=== PATIENT | male | born 1970 | race Caucasian/White ===

== ENCOUNTER 2016-09-03 19:37 | Inpatient (IN) | payer OTHER ==
[~2016-09-03] VITALS: Ht 182.9 cm; Wt 125.0 kg
[~2016-09-03 19:37] MED LIST: AMLO-147 PO; FENO145T19 PO; FOLI-49 PO; GLIP5TAB82 PO
[2016-09-03] MEDS ORDERED: SODIUM CHLORIDE 0.9% 1L BAG IV* STA (20:20)
[2016-09-03] MEDS ORDERED: ACETAMINOPHEN 500 MG TAB PO STA (20:30)
[2016-09-03 20:51] LABS: ADD SCAN DIFF NO
[2016-09-03 20:53] LABS: HEMOGLOBIN 13.5 g/dl (14.0-18.0); MEAN CORPUSCULAR HEMOGLOBIN 30.8 pg (29.0-33.0); MEAN CORPUSCULAR HGB CONC 33.8 g/dl (32.0-37.0); MEAN CORPUSCULAR VOLUME 91.3 fl (82.0-101.0); MEAN PLATELET VOLUME 8.5 fl (7.4-10.4); PLATELET COUNT 553 10^3/UL (140-415); RED BLOOD COUNT 4.38 10^6/ul (4.70-6.10); RED CELL DISTRIBUTION WIDTH 12.5 % (11.5-14.5); WHITE BLOOD COUNT 4.9 10^3/ul (4.8-10.8)
[2016-09-03 21:01] LABS: ADD UMIC YES; URINE BILIRUBIN (Dip) NEGATIVE (NEGATIVE); URINE BLOOD (Dip) 3+ (NEGATIVE); URINE COLOR YELLOW (YELLOW); URINE GLUCOSE (Dip) NEGATIVE (NEGATIVE); URINE KETONES (Dip) NEGATIVE (NEGATIVE); URINE NITRITE (Dip) NEGATIVE (NEGATIVE); URINE TOTAL PROTEIN (Dip) 3+ (NEGATIVE)
[2016-09-03 21:02] LABS: URINE LEUKOCYTE ESTERASE (Dip) 3 (NEGATIVE); URINE UROBILINOGEN (Dip) 0.2 E.U./dL (0.1-1.0)
[2016-09-03 21:04] LABS: BACTERIA,URINE FEW
[2016-09-03 21:05] LABS: INR 1.26; PARTIAL THROMBOPLASTIN TIME 29.3 Sec (25.0-35.0); PROTIME 15.9 Sec (12.2-14.2); PT RATIO 1.2
[2016-09-03 21:06] LABS: ALBUMIN 3.2 g/dl (3.3-4.9)
[2016-09-03 21:07] LABS: CHLORIDE 92 mmol/L (97-110); SODIUM 130 mmol/L (135-144)
[2016-09-03 21:09] LABS: ALBUMIN/GLOBULIN RATIO 0.88; ALKALINE PHOSPHATASE 89 IU/L (42-121); ANION GAP 20 (8-16); ASPARTATE AMINO TRANSFERASE 68 IU/L (15-46); BILIRUBIN,INDIRECT 0.5 mg/dl (0-1.1); BILIRUBIN,TOTAL 0.5 mg/dl (0.2-1.3); CARBON DIOXIDE 22 mmol/L (21-31); TOTAL PROTEIN 6.8 g/dl (6.1-8.1)
[2016-09-03 21:10] LABS: ALANINE AMINOTRANSFERASE 68 IU/L (13-69); BLOOD UREA NITROGEN 10 mg/dl (7-20); CALCIUM 8.7 mg/dl (8.4-10.2); GLUCOSE 93 mg/dl (70-220)
--- NOTE | 2016-09-03 21:24 | RADRPT ---
PROCEDURE: XR Chest. CLINICAL INDICATION: Possible sepsis. TECHNIQUE: Single frontal view of the chest with apical lordotic positioning. COMPARISON: None. FINDINGS: Heart size is at upper limits of normal. The lungs are clear. No signs of pleural fluid or pneumotho rax are seen. The osseous structures and soft tissues are unremarkable. IMPRESSION: No evidence for active cardiopulmonary disease. RPTAT: [facility] Physician Melodie Date Time Electronically viewed and signed by Rachele Ramirez Physician on 09/03/2016 21:24 RS/
[2016-09-03 21:29] LABS: TROPONIN-I < 0.012 ng/ml (0.00-0.12)
[2016-09-03 21:30] LABS: LYMPHOCYTES # 1.4 10^3/ul (0.8-2.9); NEUTROPHIL # 0.9 10^3/ul (1.6-7.5); PLATELET ESTIMATE PLT APPEAR INCREASED
[2016-09-03] MEDS ORDERED: ATOR10TA65 PO (21:50)
[2016-09-03] MEDS ORDERED: ENAL10TA PO (21:50)
[2016-09-03] MEDS ORDERED: FENO160T13 PO (21:50)
[2016-09-03 21:57] VITALS: TEMP 99.7
[2016-09-03] MEDS ORDERED: ONDANSETRON 4 MG INJ IV PRN ×2 (22:00→23:00)
[2016-09-03] MEDS ORDERED: ACETAMINOPHEN 325 MG TAB PO PRN (22:00)
[2016-09-03] MEDS ORDERED: CEFTRIAXONE 1 GM/50 ML (PMX) 50 ML IVPB ONE (22:00)
--- NOTE | 2016-09-03 22:14 | RADRPT ---
PROCEDURE: CT Abdomen and pelvis without contrast. CLINICAL INDICATION: Abdominal pain. TECHNIQUE: CT scan of the abdomen and pelvis was performed on a multi-detector high-resolution CT scanner. Contiguous axial images were obtained from the lung bases to the ischial tuberosities wit hout intravenous contrast. Coronal and sagittal reformatted images were also obtained. Images were reviewed on the PACS workstation. One or more of the following dose reduction techniques were used: - Automated exposure control. - Adjustment of the mA and/or kV according to patient size. - Use of iterative reconstruction technique. Exam CTD/vol = 23.00 mGy. Total exam DLP = 1614.25 mGy-cm. COMPARISON: 11/13/2013. FINDINGS: Evaluation of the lung bases demonstrates no pleural or parenchymal disease. Abdomen: The liver is normal in size and diffusely low in attenuation consistent with fatty infiltr ation. There is no focal mass or dilatation of the biliary tree. The gallbladder is not distended. The spleen, pancreas and bilateral adrenal glands are within normal limits. There is a duplicated left renal collecting system with moderate dilatation of the upper pole moiety and marked dilatatio n of the lower pole moiety with mild adjacent stranding. There is severe left-sided hydroureter. T he right kidney is normal in size with no contour deforming mass identified. There is no radiopaque renal or ureteral calculus identified. There is no retroperitoneal adenopathy. The abdominal aort a is of normal caliber. There is no abnormal bowel wall thickening or distension. There is no bowel obstruction or free air . The appendix is not visualized. There is no diverticulosis or diverticulitis. There is no ascite s. Pelvis: The bladder is unremarkable. The prostate and seminal vesicles are within normal limits. There is no significant pelvic adenopathy or free fluid. Evaluation of the osseous structures demonstrates no suspicious lytic or blastic lesion. IMPRESSION: Duplicated left renal collecting system with moderate dilatation of the upper pole moiety and marked dilatation of the lower pole moiety, increased compared with 11/13/2013. There is moderate left-si ded hydroureter, also increased. Fatty infiltration of the liver. .Anthony Monk MD, Date Time Electronically viewed and signed by .Anthony Monk MD, MD on 09/03/2016 22:14 .T/
[2016-09-03 22:30] VITALS: Ht 182.9 cm; Wt 125.0 kg
[2016-09-03] MEDS ORDERED: morphine 4 MG/ML VIAL IV PRN (23:00)
--- NOTE | 2016-09-03 23:00 | ERA ---
ER Documentation Chief Complaint Date/Time DATE: 09/03/16 TIME: 22:58 Chief Complaint sent by pmd for fever/lower abd pain, high wbc HPI Patient is a 45-year-old male who presents with abdominal pain. The patient has had abdominal pain and flank pain for the past 2 weeks. He was told that he had a UTI was placed on Bactrim and he got better but then he got worse and the symptoms came back even stronger. The patient has had urine frequency and dysuria. He called the clinic and his primary doctor who was concerned for worsening infection and therefore came to the emergency department. ROS All systems reviewed and are negative except as per history of present illness. Medications Home Meds Reported Medications Enalapril Maleate* (Enalapril Maleate*) 10 Mg Tablet, 10 MG PO DAILY, TAB 09/03/16 Atorvastatin Calcium (Atorvastatin Calcium) 10 Mg Tablet, 10 MG PO QHS, #30 TAB 09/03/16 Fenofibrate, Micronized* (Fenofibrate*) 160 Mg Tablet, 160 MG PO DAILY, TAB 09/03/16 Folic Acid* (Folic Acid*) 1 Mg Tablet, 1 MG PO DAILY, TAB 11/13/13 Glipizide* (Glucotrol*) 5 Mg Tablet, 5 MG PO DAILY, TAB 11/13/13 Discontinued Reported Medications Fenofibrate Nanocrystallized* (Fenofibrate*) 145 Mg Tablet, 160 MG PO DAILY, TAB 11/13/13 Amlodipine Besylate* (Amlodipine Besylate*) 10 Mg Tablet, 10 MG PO DAILY, TAB 11/13/13 Allergies Allergies: Coded Allergies: No Known Drug Allergies (Verified Allergy, Unknown, 09/03/16) PMhx/Soc History of Surgery: Yes (TESTICULAR TORSION; ADENOID REMOVAL) Anesthesia Reaction: No Hx Neurological Disorder: No Hx Respiratory Disorders: No Hx Cardiac Disorders: No Hx Psychiatric Problems: No Hx Miscellaneous Medical Probl: Yes (HTN, DM, L HYDRONEPHROSIS) Hx Alcohol Use: Yes (SOCIALLY) Hx Substance Use: No (THC socially) Hx Tobacco Use: Yes (Quit 4 years ago) Smoking Status: Former smoker FmHx Family History: No diabetes Physical Exam Vitals Vital Signs Date Time Temp Pulse Resp B/P Pulse Ox O2 Delivery O2 Flow Rate FiO2 09/03/16 21:57 99.7 99 16 122/73 100 Room Air 09/03/16 20:57 113 20 148/77 97 Room Air 09/03/16 19:48 103.0 130 20 130/84 97 Physical Exam Const: Mild distress Head: Atraumatic Eyes: Normal Conjunctiva ENT: Normal External Ears, Nose and Mouth. Neck: Full range of motion..~ No meningismus. Resp: Clear to auscultation bilaterally Cardio: Tachycardia without murmur Abd: Soft, diffuse tenderness to palpation without rebound or guarding Skin: No petechiae or rashes Back: No midline or flank tenderness Ext: No cyanosis, or edema Neur: Awake and alert Psych: Normal Mood and Affect Result Diagram: 09/03/16203909/03/162039 Results 24 hrs Laboratory Tests Test 09/03/16 20:40 White Blood Count 4.910^3/ul Red Blood Count 4.3810^6/ul Hemoglobin 13.5g/dl Hematocrit 40.0% Mean Corpuscular Volume 91.3fl Mean Corpuscular Hemoglobin 30.8pg Mean Corpuscular Hemoglobin Concent 33.8g/dl Red Cell Distribution Width 12.5% Platelet Count 06348^3/UL Mean Platelet Volume 8.5fl Neutrophils % 18.0% Band Neutrophils % 22.0% Lymphocytes % 28.0% Reactive Lymphocytes % 9.0% Monocytes % 21.0% Eosinophils % % Metamyelocytes % 2.0% Neutrophils # 0.910^3/ul Lymphocytes # 1.410^3/ul Monocytes # 1.010^3/ul Eosinophils # 10^3/ul Metamyelocytes # 0.1 Platelet Estimate PLT APPEAR INCREASED Prothrombin Time 15.9Sec Prothrombin Time Ratio 1.2 INR International Normalized Ratio 1.26 Activated Partial Thromboplast Time 29.3Sec Urine Color YELLOW Urine Clarity TURBID Urine pH 7 Urine Specific [place] 1.020 Urine Ketones NEGATIVE Urine Nitrite NEGATIVE Urine Bilirubin NEGATIVE Urine Urobilinogen 0.2 E.U./dL Urine Leukocyte Esterase 3 Urine Microscopic RBC 5-10/HPF Urine Microscopic WBC >200/HPF Urine Bacteria FEW Urine Hemoglobin 3+ Urine Glucose NEGATIVE% Urine Total Protein 3+ Sodium Level 130mmol/L Potassium Level 4.0mmol/L Chloride Level 92mmol/L Carbon Dioxide Level 22mmol/L Anion Gap 20 Blood Urea Nitrogen 10mg/dl Creatinine 0.90mg/dl Glucose Level 93mg/dl Lactic Acid Level 1.3mmol/L Calcium Level 8.7mg/dl Total Bilirubin 0.5mg/dl Direct Bilirubin 0.00mg/dl Indirect Bilirubin 0.5mg/dl Aspartate Amino Transf (AST/SGOT) 68IU/L Alanine Aminotransferase (ALT/SGPT) 68IU/L Alkaline Phosphatase 89IU/L Troponin I < 0.012ng/ml Total Protein 6.8g/dl Albumin 3.2g/dl Globulin 3.60g/dl Albumin/Globulin Ratio 0.88 Current Medications Medications (Trade) Dose Ordered Sig/Kassandra Route PRN Reason Start Time Stop Time Status Last Admin Dose Admin Sodium Chloride (NS) 3,880 ml BOLUS OVER 2 HOURS STAT IV* 09/03/16 20:20 09/03/16 20:21 DC 09/03/16 20:37 Acetaminophen (Tylenol Tab) 1,000 mg ONCE STAT PO 09/03/16 20:30 09/03/16 20:31 DC 09/03/16 20:36 Procedures/MDM Admit MDM: Patient's infectious symptoms have not stabilized and the patient is at risk of rapid decompensation. The patient will be admitted for careful hydration, antibiotic therapy, and infectious source control. Severe Sepsis criteria: Infectious source: Pyelonephritis End organ damage indicated by: No end organ damage at this time Sepsis Management: Time of recognition of sepsis: 20:40 Within 3 hours of recognition: Blood cultures x 2 before broad-spectrum antibiotics: Yes 30 ml/kg NS bolus Completed Initial lactate 1.3 Repeat lactate pending Time of recognition of septic shock: No septic shock Septic Shock Assessment: Any lactic acid > 4.0 No Persistent hypotension (SBP < 90 or 40 mmHg drop, MAP < 65) despite 30 mL/kg IV fluid bolus No Volume Re-assessment for Septic Shock (post 30 ml/kg bolus): No septic shock at this time Persistent Hypotension Treatment: Comfort care No Central line Not Required Vasopressor started Not required I considered further perfusion assessment with CVP measurement, SCVO2, bedside ultrasound volume assessment, passive leg raise, trial of further fluid bolus. And proceeded with 30 ml/kg fluid bolus of NSS, broad spectrum antibiotics, and admission. Accepting Care Team Current data and ongoing care discussed. Admitting Physician: Dr. Akers from the panel team [place]odeo Performer(s): None Outstanding Data: Culture results and repeat lactic acid Critical Care: Critical care time 35 minutes excluding all billable procedures Emergent fluid management while maintaining close respiratory support. Provision of immediate and broad-spectrum antibiotic therapy. Simultaneous assessment for possible sources in order to direct targeted therapy. Consideration for invasive and chemical support to prevent cardiopulmonary collapse. Departure Diagnosis: Primary Impression: Sepsis Qualified Code: A41.9 - Sepsis, due to unspecified organism Additional Impressions: Fever Qualified Code: R50.9 - Fever, unspecified fever cause Pyelonephritis Bandemia Anemia Qualified Code: D64.9 - Anemia, unspecified type Condition: SERA Meza MD Sep 03, 2016 23:00
[2016-09-03] MEDS ORDERED: DEXTROSE 50% 50 ML SYRINGE IV PRN ×2 (23:15)
[2016-09-03] MEDS ORDERED: GLUCOSE GEL 15 GRAM TUBE PO PRN ×2 (23:15)
[2016-09-03] MEDS ORDERED: GLUCOSE GEL 15 GRAM TUBE BUCCAL PRN (23:15)
[2016-09-03] MEDS ORDERED: GLUCAGON 1 MG INJ IM PRN (23:15)
[2016-09-03] MEDS: SOD CHLORIDE 0.9% 1,000 ML IV SCH (23:30)
[2016-09-04] MEDS: CEFEPIME 1GM/50 ML (PMX) 50 ML IVPB SCH ×3 (00:23→21:46)
[2016-09-04] MEDS: ACCU-CHEK XX SCH (00:56)
[2016-09-04] MEDS ORDERED: ACCU-CHEK XX SCH (02:00)
[2016-09-04 06:34] LABS: ADD SCAN DIFF NO
[2016-09-04 06:48] LABS: ABNORMAL IP MESSAGE 1; HEMATOCRIT 32.2 % (42.0-52.0); HEMOGLOBIN 10.9 g/dl (14.0-18.0); MEAN CORPUSCULAR HEMOGLOBIN 31.8 pg (29.0-33.0); MEAN CORPUSCULAR HGB CONC 33.9 g/dl (32.0-37.0); MEAN CORPUSCULAR VOLUME 93.9 fl (82.0-101.0); MEAN PLATELET VOLUME 8.8 fl (7.4-10.4); PLATELET COUNT 399 10^3/UL (140-415); RED BLOOD COUNT 3.43 10^6/ul (4.70-6.10); WHITE BLOOD COUNT 3.6 10^3/ul (4.8-10.8)
[2016-09-04] MEDS: SOD CHLORIDE 0.9% 1,000 ML IV SCH ×2 (07:00→16:13)
[2016-09-04 07:05] LABS: ALANINE AMINOTRANSFERASE 54 IU/L (13-69); ALBUMIN 2.4 g/dl (3.3-4.9); ALBUMIN/GLOBULIN RATIO 0.88; ALKALINE PHOSPHATASE 66 IU/L (42-121); ANION GAP 11 (8-16); ASPARTATE AMINO TRANSFERASE 56 IU/L (15-46); BILIRUBIN,INDIRECT 0.1 mg/dl (0-1.1); BILIRUBIN,TOTAL 0.1 mg/dl (0.2-1.3); BLOOD UREA NITROGEN 7 mg/dl (7-20); CALCIUM 7.6 mg/dl (8.4-10.2); CARBON DIOXIDE 19 mmol/L (21-31); CHLORIDE 105 mmol/L (97-110); CREATININE 0.57 mg/dl (0.61-1.24); GLUCOSE 92 mg/dl (70-220); HDL CHOLESTEROL 11 mg/dl (27-67); SODIUM 131 mmol/L (135-144); TOTAL PROTEIN 5.1 g/dl (6.1-8.1); TRIGLYCERIDES 66 mg/dl (0-149)
[2016-09-04 07:06] LABS: CHOLESTEROL < 50 mg/dl (100-200)
--- NOTE | 2016-09-04 07:45 | HP ---
DATE OF ADMISSION: 09/03/2016 CHIEF COMPLAINT: The patient is sent by PCP for abdominal pain, fever, and leukocytosis. HISTORY OF PRESENT ILLNESS: The patient is a 45-year-old male with a history of hypertension, dysli pidemia, diabetes, and testicular torsion status post surgery who was sent by his primary care docto r for above stated reasons. The patient has been having lower abdominal as well as flank pain for o ignacio 2 weeks now. He has been placed on Bactrim for UTI. However, his pain progressively has gotten worse. He also reported pain on urination as well as frequency. He denied any chest pain, shortne ss of breath, nausea, vomiting, or diarrhea. When the patient presented to the ER, his temperature was 103, and he was tachycardic with a heart r ate of 130. Urinalysis was consistent with severe UTI. Laboratory value shows sodium of 130, chlor yajaira 92, AST 68, albumin 3.2, hemoglobin 13.5, and platelet count 553. Otherwise, the rest of CBC an d CMP were within acceptable range. Chest x-ray shows no active disease, and a CT abdomen and pelvi s without contrast shows duplicated left renal collecting system with moderate dilatation of the upp er pole moiety and marked dilatation of the lower pole moiety, increased compared to the CT scan fro 2013. There is moderate left-sided hydroureter, also increased from previously. Also noted was f atty infiltration of the liver. The patient was given IV fluid and was started on Rocephin. REVIEW OF SYSTEMS: A 12-point review was performed, negative except as mentioned in HPI. PAST MEDICAL HISTORY: As per HPI. PAST SURGICAL HISTORY: Surgery for testicular torsion. SOCIAL HISTORY: He is an ex-smoker, drinks alcohol occasionally. Denied a history of illicit drug use. ALLERGIES: NO KNOWN DRUG ALLERGIES. HOME MEDICATIONS: 1. Lipitor. 2. Enalapril. 3. Fenofibrate. 4. Glipizide. 5. Folic acid. PHYSICAL EXAMINATION: VITAL SIGNS: Blood pressure 122/73, heart rate 99, respiratory rate 16, temperature 99.7, oxygen sa turation 100% on room air. GENERAL: No acute distress, lying in bed, comfortable, answering questions appropriately. HEENT: No obvious head deformity. Pupils are reactive to light. Extraocular muscles intact. CARDIOVASCULAR: Tachycardic with regular rhythm. LUNGS: Clear. ABDOMEN: Obese, soft. There is tenderness in the lower abdominal region as well as in bilateral fl ank area. EXTREMITIES: No edema. NEUROLOGIC: No focal deficits. LABORATORY: Pertinent positives as above with results as mentioned in the HPI. IMAGING: Chest x-ray and CT abdomen and pelvis without contrast with results as mentioned in the HP I. IMPRESSION: 1. Sepsis, secondary to pyelonephritis. 2. Hypertension, currently blood pressure within goal. 3. History of diabetes, blood glucose here well controlled. 4. History of dyslipidemia 5. Hyponatremia. 6. Thrombocytosis, likely reactive secondary to sepsis. PLAN: He will be placed on IV antibiotic. We will follow up on the urine culture as well as blood culture results. We will provide pain medication and antiemetics as needed. He will be placed on i nsulin for his diabetes while in house. We will continue his home medication including antihyperten sive as well as for dyslipidemia. He will also receive IV fluid. Further workup and management per clinical course. Dictated By: VARUN TIMMONS/MUNIRA Conf#: [id number] DID#: [id number]
[2016-09-04] MEDS: INSULIN ASPART [NOVOLOG] 3 ML PEN SC SCH ×4 (08:00→21:00)
[2016-09-04 08:41] VITALS: BP 132/70; RESP 20
[2016-09-04] MEDS: FENOFIBRATE 145 MG TAB PO SCH (08:41)
[2016-09-04] MEDS: FOLIC ACID 1 MG TAB PO SCH (08:41)
[2016-09-04 09:37] LABS: LYMPHOCYTES # 1.5 10^3/ul (0.8-2.9); MONOCYTE # 0.9 10^3/ul (0.3-0.9); NEUTROPHIL # 0.3 10^3/ul (1.6-7.5)
[2016-09-04] MEDS: ENALAPRIL 10 MG TAB PO SCH (12:00)
[2016-09-04 12:02] VITALS: BP 138/79; PULSE 107
--- NOTE | 2016-09-04 15:03 | PN ---
Date/Time of Note Date/Time of Note DATE: 09/04/16 TIME: 14:52 Assessment/Plan VTE Prophylaxis VTE Prophylaxis Intervention: SCD's Lines/Catheters [facility] Per[facility] IV Urinary Cath still in place: No Assessment/Plan Chief Complaint/Hosp Course Assessment and plan 1. Urinary tract infection/ pyelonephritis. Patient has been placed on cefepime Urine culture positive for ALPHA HEMOLYTIC STREP SPP COLONY COUNT >100,000 CFU/ml, [employer] Follow up sensitivity and treat accordingly 2. Hypertension, currently blood pressure within goal. 3. History of diabetes, blood glucose here well controlled. 4. History of dyslipidemia 5. Hyponatremia. Improving 6. Thrombocytosis, likely reactive secondary to sepsis. We will continue monitor patient closely for recommendation management treatment as clinical course Discharge home when sensitivity is available Problems: Subjective 24 Hr Interval Summary Free Text/Dictation Patient denies of any chest pain or shortness of breath Significant improvement in genitourinary discomfort No nausea vomiting diarrhea Tolerating oral intake Exam/Review of Systems Vital Signs Vitals Vital Signs Date Time Temp Pulse Resp B/P Pulse Ox O2 Delivery O2 Flow Rate FiO2 09/04/16 12:02 107 138/79 09/04/16 08:41 99.0 20 96 09/03/16 21:57 Room Air Intake and Output 09/03/16 09/03/16 09/04/16 15:00 23:00 07:00 Intake Total 1187.5 ml Output Total 400 ml Balance 787.5 ml Exam General: The patient is morbidly obese, Not in acute distress. HEENT: Atraumatic, normocephalic. The pupils are equal and round . Neck: Supple with full range of motion. Chest: Normal expansion of the thorax during inspiration Lungs: Clear to auscultation bilaterally Heart: Normal S1-S2, Regular rhythm and rate. Abdomen: Soft , nontender, nondistended , bowel sounds are present. Extremities: Normal to inspection, no edema no cyanosis Neurologic: Normal mental status,The patient is awake, alert and oriented . Genitourinary: Minimal drainage Results Result Diagram: 09/04/16 0536 09/04/16 0536 Results 24 hrs Laboratory Tests Test 09/03/16 20:40 09/03/16 22:42 09/03/16 22:50 09/04/16 00:43 White Blood Count 4.9 Red Blood Count 4.38 L Hemoglobin 13.5 L Hematocrit 40.0 L Mean Corpuscular Volume 91.3 Mean Corpuscular Hemoglobin 30.8 Mean Corpuscular Hemoglobin Concent 33.8 Red Cell Distribution Width 12.5 Platelet Count 553 H Mean Platelet Volume 8.5 Neutrophils % 18.0 L Band Neutrophils % 22.0 H Lymphocytes % 28.0 Reactive Lymphocytes % 9.0 Monocytes % 21.0 H Eosinophils % Metamyelocytes % 2.0 H Neutrophils # 0.9 L Lymphocytes # 1.4 Monocytes # 1.0 H Eosinophils # Metamyelocytes # 0.1 Platelet Estimate PLT APPEAR INCREASED Prothrombin Time 15.9 H Prothrombin Time Ratio 1.2 INR International Normalized Ratio 1.26 Activated Partial Thromboplast Time 29.3 Urine Color YELLOW Urine Clarity TURBID H Urine pH 7 Urine Specific [place] 1.020 Urine Ketones NEGATIVE Urine Nitrite NEGATIVE Urine Bilirubin NEGATIVE Urine Urobilinogen 0.2 E.U./dL Urine Leukocyte Esterase 3 Urine Microscopic RBC 5-10 Urine Microscopic WBC >200 Urine Bacteria FEW Urine Hemoglobin 3+ H Urine Glucose NEGATIVE Urine Total Protein 3+ H Sodium Level 130 L Potassium Level 4.0 Chloride Level 92 L Carbon Dioxide Level 22 Anion Gap 20 H Blood Urea Nitrogen 10 Creatinine 0.90 Glucose Level 93 Lactic Acid Level 1.3 0.7 0.7 Calcium Level 8.7 Total Bilirubin 0.5 Direct Bilirubin 0.00 Indirect Bilirubin 0.5 Aspartate Amino Transf (AST/SGOT) 68 H Alanine Aminotransferase (ALT/SGPT) 68 Alkaline Phosphatase 89 Troponin I < 0.012 Total Protein 6.8 Albumin 3.2 L Globulin 3.60 H Albumin/Globulin Ratio 0.88 Bedside Glucose 84 Test 09/04/16 05:32 09/04/16 05:36 09/04/16 07:54 09/04/16 11:52 Hemoglobin A1c 5.6 White Blood Count 3.6 #L Red Blood Count 3.43 #L Hemoglobin 10.9 L Hematocrit 32.2 L Mean Corpuscular Volume 93.9 Mean Corpuscular Hemoglobin 31.8 Mean Corpuscular Hemoglobin Concent 33.9 Red Cell Distribution Width 13.0 Platelet Count 399 # Mean Platelet Volume 8.8 Neutrophils % 9.0 L Band Neutrophils % 22.0 H Lymphocytes % 43.0 Monocytes % 24.0 H Eosinophils % 1.0 Basophils % 1.0 Neutrophils # 0.3 L Lymphocytes # 1.5 Monocytes # 0.9 Eosinophils # 0.0 Basophils # 0.0 Sodium Level 131 L Potassium Level 4.0 Chloride Level 105 # Carbon Dioxide Level 19 L Anion Gap 11 # Blood Urea Nitrogen 7 Creatinine 0.57 L Glucose Level 92 Calcium Level 7.6 L Total Bilirubin 0.1 L Direct Bilirubin 0.00 Indirect Bilirubin 0.1 Aspartate Amino Transf (AST/SGOT) 56 H Alanine Aminotransferase (ALT/SGPT) 54 Alkaline Phosphatase 66 Total Protein 5.1 #L Albumin 2.4 L Globulin 2.70 Albumin/Globulin Ratio 0.88 Triglycerides Level 66 Cholesterol Level < 50 L LDL Cholesterol, Calculated HDL Cholesterol 11 L Cholesterol/HDL Ratio Bedside Glucose 93 150 Medications Medications Current Medications Cefepime HCl (Maxipime 1gm/50 ml (Pmx)) 50 ml @ 100 mls/hr Q12 IVPB Last administered on 09/04/16 08:41; Admin Dose 100 MLS/HR; Start 09/03/16 at 23:00 Insulin Glargine (Lantus) 10 unit DAILY@20 SC ; Start 09/04/16 at 20:00 Diagnostic Test (Pha) (Accu-Chek) 1 ea 02 XX ; Start 09/04/16 at 02:00 Morphine Sulfate (morphine) 3 mg Q4H PRN IV PAIN; Start 09/03/16 at 23:00 Acetaminophen (Tylenol Tab) 650 mg Q6H PRN PO PAIN AND OR ELEVATED TEMP; Start 09/03/16 at 23:00 Ondansetron HCl 4 mg 4 mg Q6H PRN IV NAUSEA AND/OR VOMITING; Start 09/03/16 at 23:00 Sodium Chloride (NS) 1,000 ml @ 125 mls/hr Q8H IV Last administered on 23:30; Admin Dose 125 MLS/HR; Start 09/03/16 at 23:00 Atorvastatin Calcium (Lipitor) 10 mg QHS PO ; Start 09/04/16 at 21:00 Enalapril Maleate (Vasotec) 10 mg DAILY PO Last administered on 09/04/16 12:00 ; Admin Dose 10 MG; Start 09/04/16 at 09:00 Folic Acid (Folic Acid) 1 mg DAILY PO Last administered on 09/04/16 08:41; Admin Dose 1 MG; Start 09/04/16 at 09:00 Fenofibrate (Tricor) 145 mg DAILY PO Last administered on 09/04/16t 08:41; Admin Dose 145 MG; Start 09/04/16 at 09:00 Miscellaneous Information 1 ea NOTE XX ; Start 09/03/16 at 23:15 Glucose (Glutose) 15 gm Q15M PRN PO DECREASED GLUCOSE; Start 09/03/16 at 23:15 Glucose (Glutose) 22.5 gm Q15M PRN PO DECREASED GLUCOSE; Start 09/03/16 at 23: 15 Dextrose (D50w Syringe) 25 ml Q15M PRN IV DECREASED GLUCOSE; Start 09/03/16 at 23:15 Dextrose (D50w Syringe) 50 ml Q15M PRN IV DECREASED GLUCOSE; Start 09/03/16 at 23:15 Glucagon (Glucagen) 1 mg Q15M PRN IM DECREASED GLUCOSE; Start 09/03/16 at 23:15 Glucose (Glutose) 15 gm Q15M PRN BUCCAL DECREASED GLUCOSE; Start 09/03/16 at 23 :15 ROVERTO OSWALD MD Sep 04, 2016 15:03
[2016-09-04] MEDS: ACETAMINOPHEN 325 MG TAB PO PRN (17:14)
[2016-09-04 20:17] VITALS: BP 138/83; RESP 18
[2016-09-04] MEDS: INSULIN GLARGINE [LANtus] 3 ML PEN SC SCH (21:47)
[2016-09-04] MEDS: ATORVASTATIN 10 MG TAB PO SCH (21:48)
[2016-09-05] MEDS: ACCU-CHEK XX SCH (02:00)
[2016-09-05 05:45] LABS: ADD SCAN DIFF NO
[2016-09-05 05:54] LABS: ABNORMAL IP MESSAGE 1; BASOPHIL # 0.1 10^3/ul (0.0-0.1); BASOPHILS % 1.2 % (0.0-2.0); EOSINOPHILS # 0.1 10^3/ul (0.0-0.5); EOSINOPHILS % 2.4 % (0.0-7.0); HEMATOCRIT 31.9 % (42.0-52.0); HEMOGLOBIN 10.8 g/dl (14.0-18.0); LYMPHOCYTES # 1.4 10^3/ul (0.8-2.9); LYMPHOCYTES % 34.6 % (15.0-51.0); MEAN CORPUSCULAR HEMOGLOBIN 31.5 pg (29.0-33.0); MEAN CORPUSCULAR HGB CONC 33.9 g/dl (32.0-37.0); MEAN PLATELET VOLUME 8.9 fl (7.4-10.4); MONOCYTES % 24.1 % (0.0-11.0); NEUTROPHIL # 1.5 10^3/ul (1.6-7.5); NEUTROPHILS % 37.2 % (39.0-77.0); PLATELET COUNT 452 10^3/UL (140-415); RED BLOOD COUNT 3.43 10^6/ul (4.70-6.10); RED CELL DISTRIBUTION WIDTH 13.1 % (11.5-14.5); WHITE BLOOD COUNT 4.1 10^3/ul (4.8-10.8)
[2016-09-05 06:16] LABS: CALCIUM 7.7 mg/dl (8.4-10.2); CREATININE 0.62 mg/dl (0.61-1.24); MAGNESIUM 2.1 mg/dl (1.7-2.5); POTASSIUM 3.8 mmol/L (3.5-5.1)
[2016-09-05] MEDS: INSULIN ASPART [NOVOLOG] 3 ML PEN SC SCH ×4 (08:00→20:38)
[2016-09-05 08:09] VITALS: BP 131/80; RESP 20
[2016-09-05] MEDS: CEFEPIME 1GM/50 ML (PMX) 50 ML IVPB SCH ×2 (09:02→20:37)
[2016-09-05] MEDS: FOLIC ACID 1 MG TAB PO SCH (09:03)
[2016-09-05] MEDS: FENOFIBRATE 145 MG TAB PO SCH (09:04)
[2016-09-05] MEDS: ENALAPRIL 10 MG TAB PO SCH (09:05)
[2016-09-05] MEDS: SOD CHLORIDE 0.9% 1,000 ML IV SCH (09:40)
--- NOTE | 2016-09-05 16:02 | PN ---
Date/Time of Note Date/Time of Note DATE: 09/05/16 TIME: 15:58 Assessment/Plan VTE Prophylaxis VTE Prophylaxis Intervention: LMWH Lines/Catheters IV [facility] Type (from [facility] Peripheral IV Urinary Cath still in place: No Assessment/Plan Chief Complaint/Hosp Course S: Less toxicity. Some discolored urine and may be dysuria remains. States he saw a urologist 8 years ago. O: Vital signs stable PE No pallor Regular Clear Bs + nt nd; no r/r/g. Morbidly obese. No cvat No edema A/P 1. Pyelonephritis. Stable follow-up on cultures 2. Chr obstructive uropathy. May need outpatient urology follow-up if infections recur recur 3. Abn EKG probably body habitus related. No chest pain 4. Htn/ dysl/ m obesity 5. Past tobacco 6. Leukopenia. Sepsis related? Problems: Exam/Review of Systems Vital Signs Vitals Vital Signs Date Time Temp Pulse Resp B/P Pulse Ox O2 Delivery O2 Flow Rate FiO2 09/05/16 11:30 98.2 09/05/16 08:09 103 20 131/80 95 09/03/16 21:57 Room Air Intake and Output 09/04/16 09/04/16 09/05/16 15:00 23:00 07:00 Intake Total 363 ml 1250 ml 1280 ml Output Total 1701 ml Balance 363 ml -451 ml 1280 ml Results Result Diagram: 09/05/16 0443 09/05/16 0448 Results 24 hrs Laboratory Tests Test 09/04/16 17:02 09/04/16 21:44 09/05/16 04:43 09/05/16 04:48 Bedside Glucose 141 118 White Blood Count 4.1 L Red Blood Count 3.43 L Hemoglobin 10.8 L Hematocrit 31.9 L Mean Corpuscular Volume 93.0 Mean Corpuscular Hemoglobin 31.5 Mean Corpuscular Hemoglobin Concent 33.9 Red Cell Distribution Width 13.1 Platelet Count 452 H Mean Platelet Volume 8.9 Neutrophils % 37.2 L Lymphocytes % 34.6 Monocytes % 24.1 H Eosinophils % 2.4 Basophils % 1.2 Nucleated Red Blood Cells % 0.0 Neutrophils # 1.5 L Lymphocytes # 1.4 Monocytes # 1.0 H Eosinophils # 0.1 Basophils # 0.1 Nucleated Red Blood Cells # 0.0 Sodium Level 130 L Potassium Level 3.8 Chloride Level 104 Carbon Dioxide Level 21 Anion Gap 9 Blood Urea Nitrogen 6 L Creatinine 0.62 Glucose Level 117 Calcium Level 7.7 L Magnesium Level 2.1 Test 09/05/16 07:58 09/05/16 11:49 Bedside Glucose 110 125 Medications Medications Current Medications Cefepime HCl (Maxipime 1gm/50 ml (Pmx)) 50 ml @ 100 mls/hr Q12 IVPB Last administered on 09/05/16 09:02; Admin Dose 100 MLS/HR; Start 09/03/16 at 23:00 Insulin Glargine (Lantus) 10 unit DAILY@20 SC Last administered on 09/04/16 21 :47; Admin Dose 10 UNIT; Start 09/04/16 at 20:00 Diagnostic Test (Pha) (Accu-Chek) 1 ea 02 XX ; Start 09/04/16 at 02:00 Morphine Sulfate (morphine) 3 mg Q4H PRN IV PAIN; Start 09/03/16 at 23:00 Acetaminophen (Tylenol Tab) 650 mg Q6H PRN PO PAIN AND OR ELEVATED TEMP Last administered on 09/04/16 17:14; Admin Dose 650 MG; Start 09/03/16 at 23:00 Ondansetron HCl (Zofran Inj) 4 mg Q6H PRN IV NAUSEA AND/OR VOMITING; Start at 23:00 Atorvastatin Calcium (Lipitor) 10 mg QHS PO Last administered on 09/04/16 21: 48; Admin Dose 10 MG; Start 09/04/16 at 21:00 Enalapril Maleate (Vasotec) 10 mg DAILY PO Last administered on 09/05/16 09:05 ; Admin Dose 10 MG; Start 09/04/16 at 09:00 Folic Acid (Folic Acid) 1 mg DAILY PO Last administered on 09/05/16 09:03; Admin Dose 1 MG; Start 09/04/16 at 09:00 Fenofibrate (Tricor) 145 mg DAILY PO Last administered on 09/05/16 09:04; Admin Dose 145 MG; Start 09/04/16 at 09:00 Miscellaneous Information 1 ea NOTE XX ; Start 09/03/16 at 23:15 Glucose (Glutose) 15 gm Q15M PRN PO DECREASED GLUCOSE; Start 09/03/16 at 23:15 Glucose (Glutose) 22.5 gm Q15M PRN PO DECREASED GLUCOSE; Start 09/03/16 at 23: 15 Dextrose (D50w Syringe) 25 ml Q15M PRN IV DECREASED GLUCOSE; Start 09/03/16 at 23:15 Dextrose (D50w Syringe) 50 ml Q15M PRN IV DECREASED GLUCOSE; Start 09/03/16 at 23:15 Glucagon (Glucagen) 1 mg Q15M PRN IM DECREASED GLUCOSE; Start 09/03/16 at 23:15 Glucose 15 gm 15 gm Q15M PRN BUCCAL DECREASED GLUCOSE; Start 09/03/16 at 23:15 Sodium Chloride (NS) 1,000 ml @ 60 mls/hr [id number] IV Last administered on 09/05t 09:40; Admin Dose 60 MLS/HR; Start 09/04/16 at 15:30 ELLIOT ORTEGA MD Sep 05, 2016 16:02
[2016-09-05] MEDS: ACETAMINOPHEN 325 MG TAB PO PRN (17:29)
[2016-09-05] MEDS: INSULIN GLARGINE [LANtus] 3 ML PEN SC SCH (20:37)
[2016-09-05] MEDS: ATORVASTATIN 10 MG TAB PO SCH (20:37)
[2016-09-05 20:49] VITALS: BP 138/79; RESP 17
[2016-09-05] MEDS: FAMOTIDINE 20 MG TAB PO SCH (21:36)
[2016-09-06] MEDS: ACCU-CHEK XX SCH (01:50)
[2016-09-06 05:00] LABS: HAAIG REFLEX REFLEX FILED
[2016-09-06 05:12] LABS: ADD SCAN DIFF NO
[2016-09-06 05:36] LABS: ALBUMIN 2.4 g/dl (3.3-4.9); ALBUMIN/GLOBULIN RATIO 0.85; BILIRUBIN,INDIRECT 0.2 mg/dl (0-1.1); BILIRUBIN,TOTAL 0.2 mg/dl (0.2-1.3); CALCIUM 7.9 mg/dl (8.4-10.2); CREATININE 0.59 mg/dl (0.61-1.24); POTASSIUM 3.8 mmol/L (3.5-5.1); TOTAL PROTEIN 5.2 g/dl (6.1-8.1)
[2016-09-06 05:51] LABS: ABNORMAL IP MESSAGE 1; HEMOGLOBIN 10.4 g/dl (14.0-18.0); MEAN CORPUSCULAR HEMOGLOBIN 30.5 pg (29.0-33.0); MEAN CORPUSCULAR HGB CONC 32.5 g/dl (32.0-37.0); MEAN CORPUSCULAR VOLUME 93.8 fl (82.0-101.0); PLATELET COUNT 432 10^3/UL (140-415); RED BLOOD COUNT 3.41 10^6/ul (4.70-6.10); RED CELL DISTRIBUTION WIDTH 13.3 % (11.5-14.5); WHITE BLOOD COUNT 4.4 10^3/ul (4.8-10.8)
[2016-09-06 05:59] LABS: IRON 13 ug/dl (35-150)
[2016-09-06 06:03] LABS: THYROID STIMULATING HORMONE 0.589 MIU/L (0.465-4.680)
[2016-09-06 06:09] LABS: TOTAL IRON BINDING CAPACITY 147 ug/dl (241-421)
[2016-09-06 07:15] LABS: HEPATITIS B CORE ANTIBODY NEGATIVE (NEGATIVE)
[2016-09-06 07:30] VITALS: BP 139/81; RESP 20
[2016-09-06] MEDS: INSULIN ASPART [NOVOLOG] 3 ML PEN SC SCH ×2 (07:58→11:49)
[2016-09-06] MEDS ORDERED: AMOXICILLIN/CLAV 875 MG TAB PO SCH (09:00)
[2016-09-06 09:12] LABS: EOSINOPHILS # 0.1 10^3/ul (0.0-0.5); LYMPHOCYTES # 1.8 10^3/ul (0.8-2.9); MONOCYTE # 0.7 10^3/ul (0.3-0.9); NEUTROPHIL # 1.2 10^3/ul (1.6-7.5)
[2016-09-06] MEDS: FOLIC ACID 1 MG TAB PO SCH (09:40)
[2016-09-06] MEDS: CEFEPIME 1GM/50 ML (PMX) 50 ML IVPB SCH (09:40)
[2016-09-06] MEDS: FENOFIBRATE 145 MG TAB PO SCH (09:40)
[2016-09-06] MEDS: ENALAPRIL 10 MG TAB PO SCH (09:41)
[2016-09-06] MEDS: FAMOTIDINE 20 MG TAB PO SCH (09:41)
--- NOTE | 2016-09-06 11:14 | RADRPT ---
PROCEDURE: XR Abdomen. CLINICAL INDICATION: Abdominal pain. Renal calculi. TECHNIQUE: AP supine abdomen x-ray. COMPARISON: CT scan of the abdomen and pelvis dated 09/03/2016 FINDINGS: The bowel gas pattern is normal. There is no evidence of obstruction. There are no abnormal calcifications overlying the urinary tracts. The osseus structures are unremarkable. IMPRESSION: 1. Unremarkable abdomen radiograph. RPTAT: QQ .Jerson Jha MD, MD Date Time Electronically viewed and signed by .Jerson Jha MD, MD on 09/06/2016 11:14 .R/
--- NOTE | 2016-09-06 12:56 | PDOCDIS ---
Discharge Instructions DIAGNOSIS Discharge Diagnosis: bladder infection CONDITION Patient Condition: Good HOME CARE INSTRUCTIONS: Special Diet: 1800 ADA ACTIVITY: Activity Restrictions: Slowly Increase Activity FOLLOW UP/APPOINTMENTS Appointments appt pcp 1wELLIOT Monahan MD Sep 06, 2016 12:56
[2016-09-06] MEDS ORDERED: AMOX1TAB10 PO (12:59)
[2016-09-06] MEDS ORDERED: ACET325T40 PO (12:59)
[2016-09-06] MEDS ORDERED: FERR47.56 PO (12:59)
--- NOTE | 2016-09-06 19:07 | DS ---
DATE OF ADMISSION: 09/03/2016 DATE OF DISCHARGE: 09/06/2016 PRIMARY CARE PHYSICIAN: Unknown. LITIGATION EXAMINER: None. DIAGNOSIS ON ADMISSION: Pyelonephritis. DIAGNOSES ON DISCHARGE: 1. Pyelonephritis. 2. Chronic obstructive uropathy. 3. Leukopenia. 4. Iron deficient anemia. 5. Hypertension. 6. Dyslipidemia. 7. Morbid obesity. 8. Past tobacco abuse. 9. Chronic diabetes. HOSPITAL COURSE: A 45-year-old gentleman admitted with dysuria, fever, abnormal urine culture cons istent with pyelonephritis. The patient has abnormal anatomy, chronic obstructive uropathy. Has se en urology in the remote past. He seems to be resolving with conservative measures and antibiotics. Culture showing alpha hemolytic streptococcal sensitive to penicillin. The patient is presently s table and fit for discharge. If he does not heal or improve, may need to see urology down the line. Metabolic syndrome needs risk factor modification. EKG showed poor R-wave progression through anter oseptal leads, probably due to body habitus. He has no chest pain, etc. IMAGING STUDIES: KUB did show stones. Chest x-ray: No acute process. Potential cardiomegaly. CA T scan abdomen and pelvis without contrast read as duplicating left renal collecting system with mod erate dilatation of the upper pole moiety and marked dilatation of the lower pole moiety, increased compared to study in 2014. Moderate left-sided hydroureter also increased with fatty infiltration o f liver. Blood cultures negative. LABORATORY DATA: CMP essentially unremarkable. Iron of 13, binding capacity 147, percent sat of 9. Sodium a little low at 129. TSH 0.589, protein of 5, albumin of 2.4. A1c of 5.6, cholesterol 50, LDL unknown, HDL of 11, triglycerides of 66. Lactic acid normal. INR 1. White [place] l count of 4.4, hemoglobin and hematocrit of 10 and 32, MCV of 93, platelets of 430. Hepatitis pane l negative. Urine specific gravity 1.020, ketones negative, nitrate negative, leukocyte esterase 3, RBCs 5 to 10, white cell is greater than 200, bacteria few, hemoglobin 3+, glucose negative, protei n 3+. DISCHARGE MEDICATIONS: The patient to continue Lipitor 10, Vasotec 10, Tricor 160 daily, Folic acid 1 mg daily, glipizide 5 mg daily. NEW MEDICATIONS: 1. Tylenol as needed. 2. Iron 47.5 slow iron release daily. 3. Augmentin 875 one tablet twice daily for 10 days Dictated By: ELLIOT STOUT/MUNIRA Conf#: [id number] DID#: [id number]
== END 2016-09-06 15:40 | disposition home or self-care (01) | DRG 690 ==
LOC: FTE 19:37 → PP2 21:58
PROVIDERS: ADMIT Internal Medicine; ATTEND Internal Medicine
DX: N12 Tubulo-interstitial nephritis, not specified as acute or chronic (principal); I10 Essential (primary) hypertension; E87.1 Hypo-osmolality and hyponatremia; E66.01 Morbid (severe) obesity due to excess calories; E11.9 Type 2 diabetes mellitus without complications; B95.0 Streptococcus, group A, as the cause of diseases classified elsewhere; E78.5 Hyperlipidemia, unspecified; D47.3 Essential (hemorrhagic) thrombocythemia; N13.9 Obstructive and reflux uropathy, unspecified; Z68.37 Body mass index [BMI] 37.0-37.9, adult; D72.819 Decreased white blood cell count, unspecified; D50.9 Iron deficiency anemia, unspecified; Z79.84 Long term (current) use of oral hypoglycemic drugs; Z87.891 Personal history of nicotine dependence
CPT/HCPCS: 36415; 71010; 74000; 74176; 80048; 80053; 80061; 81001; 81003; 82728; 82962; 83036; 83540; 83605; 83735; 84443; 84484; 85025; 85610; 85730; 86704; 86709; 86803; 87040; 87086; 87340; 93005; 96374; J0692; J0696; J1815; J7030

== ENCOUNTER 2016-11-06 10:10 | Day surgery (SDC) | payer OTHER ==
[2016-11-06] VITALS (7 sets, daily range): BP systolic 119–149; BP diastolic 72–94; PULSE 88–102; RESP 12–34; Ht 182.9 cm; Wt 128.9 kg
[~2016-11-06] VITALS: Ht 182.9 cm; Wt 128.9 kg
[~2016-11-06 10:10] MED LIST changes: +ACET325T40 PO; -AMLO-147 PO; +AMOX1TAB10 PO; +ATOR10TA65 PO; +ENAL10TA PO; -FENO145T19 PO; +FENO160T13 PO; +FERR47.56 PO; +ROCURONIUM 50 MG INJ ONE
[2016-11-06] MEDS ORDERED: CEFTRIAXONE 1 GM/50 ML (PMX) 50 ML IVPB ONE ×2 (11:00→13:00)
[2016-11-06] MEDS ORDERED: IOHEXOL 300MG/ML 30 ML BTL ONE ×2 (12:17→13:00)
--- NOTE | 2016-11-06 12:29 | HPN ---
Date/Time of Note Date/Time of Note DATE: 11/06/16 TIME: 12:29 Interval H&P Admission Note Pt. seen H&P reviewed: No system changes DONNA QUINTANILLA MD Nov 06, 2016 12:29
[2016-11-06] MEDS ORDERED: MEPERIDINE 25 MG INJ IV PRN (12:30)
[2016-11-06] MEDS ORDERED: ONDANSETRON 4 MG INJ IV PRN (12:30)
[2016-11-06] MEDS ORDERED: DIPHENHYDRAMINE 50 MG INJ IV PRN (12:30)
[2016-11-06] MEDS ORDERED: FENTAnyl 50 MCG/ML VIAL IV PRN (12:30)
[2016-11-06] MEDS ORDERED: MIDAZOLAM 1 MG/ML 2 ML INJ ONE (12:32)
[2016-11-06] MEDS ORDERED: PHENYLephrine (100 MCG/ML) 5ML SYG ONE (12:48)
[2016-11-06] MEDS ORDERED: GLYCOPYRROLATE 0.4 MG INJ ONE (13:36)
[2016-11-06] MEDS ORDERED: PROPOFOL 20 ML ONE (13:37)
[2016-11-06] MEDS ORDERED: LIDOCAINE 2% (SDV) 5 ML INJ ONE (13:37)
[2016-11-06] MEDS ORDERED: NEOSTIGMINE 3 MG/3 ML SYRINGE ONE (13:37)
[2016-11-06] MEDS ORDERED: ONDANSETRON 4 MG INJ ONE (13:37)
[2016-11-06] MEDS ORDERED: CIPROFLOXACIN 400MG/D5W 200 ML ONE (13:37)
[2016-11-06] MEDS ORDERED: HYDROCODONE/APAP (5/325) TAB PO PRN (14:00)
--- NOTE | 2016-11-06 14:34 | OPR ---
DATE OF OPERATION: 11/06/2016 PREOPERATIVE DIAGNOSIS: Severe left hydronephrosis of the lower moiety of the left kidney and dupli cated left collecting system. POSTOPERATIVE DIAGNOSIS: Severe left hydronephrosis of the lower moiety of the left kidney and dupl icated left collecting system. Normal upper half of the kidney with normal upper part ureter; how er, the left ureter was not able to be visualized, neither was the opening of the ureter and the jeb dder was seen. OPERATION PERFORMED: Cystoscopy and bilateral retrograde pyelograms, attempt to do pyelogram on the lower moiety of the kidney, ureter, but the opening in the bladder could not be identified. SURGEON: Eamon Martinez MD TECHNIQUE: The patient was brought to the operating room. General anesthesia was induced. The pat ient was then given general anesthesia and positioned in the lithotomy position. The patient receiv ed 1 gram of ceftriaxone IV and 400 mg of Cipro IV. Once he was positioned in the lithotomy positio n, the genital area was prepped and draped in the usual sterile manner. A #21 [place] cystoscope aravind schmidt was then introduced under direct vision through the penile urethra all the way to the bladder. Once in the bladder, first the prostate appeared to be large and has a median lobe as well. The ure teral orifice of the upper part of the kidney was visualized and cannulated with a 5-[place] open-end ed and the Glidewire and that was advanced all the way up to the kidney. The retrograde on that beverly e appeared to be normal. Then, with the ureteral catheter inside, I tried to see if I could see the opening of the ureter that drains the lower moiety of the kidney. I looked where it is supposed to be along the interureteric ridge and proximal to the other ureter that is draining the left upper u reter, upper kidney and could not see it. Then, I removed the open-ended from the left ureter that is draining upper kidney, thinking that it may be compressing on the other one and therefore, by rem oving it I may be able to identify the other orifice. I tried and any area that may look like it ma y be a small tiny dot that may be the opening, I tried to catheterize it and it would not. After tr varinder for over a half hour, I decided just to leave it alone, but one could see typically that the up per kidney has normal collecting system, but the lower kidney we could not visualize it and the pict ure is not of a complete collecting system on the left side. Therefore, it looks definitely this pa tient has duplicated system and the lower part is not functional and therefore, there is no opening that could be identified. I did also a retrograde on the right side to compare it to the left side and make sure that the right side is also normal, and that was also normal. At the end of the proce dure, the bladder was emptied and the scope was removed. The patient was transferred to the recover y room in stable and satisfactory condition. Dictated By: EAMON SANDERS/MUNIRA Conf#: [id number] DID#: [id number]
--- NOTE | 2016-11-06 14:51 | RADRPT ---
PROCEDURE: Intraoperative imaging of the abdomen and pelvis with fluoroscopy. CLINICAL INDICATION: Abdominal and pelvic pain. Intraoperative. Retrograde urogram. TECHNIQUE: 26 images of the abdomen and pelvis were obtained in the operating room with an image i ntensifier. No radiologist was in attendance. 121.8 seconds of fluoroscopy time was used. COMPARISON: CT scan of the abdomen and pelvis dated 09/03/2016. FINDINGS: Images demonstrate contrast injected into the bilateral ureters and bilateral intra renal collecting systems. On the right side, there is no ureteral filling defect, mass, or obstruction. On the left side, the re is displacement of the lateral renal pelvis due to a markedly distended lower pole moiety as seen on prior CT scan. The ureter of the upper pole moiety of the left kidney is normal. The markedly dilated and tortuous lower pole moiety ureter is not opacified. IMPRESSION: 1. Normal right retrograde urogram. 2. Mildly displaced renal pelvis of the left upper pole moiety. 3. Left lower pole moiety is not opacified. RPTAT: QQ .Jerson Jha MD, MD Date Time Electronically viewed and signed by .Jerson Jha MD, on 11/06/2016 14:50 .R/
== END 2016-11-06 14:59 | disposition home or self-care (01) ==
LOC: SDS 10:10
PROVIDERS: ATTEND Urology
DX: N13.30 Unspecified hydronephrosis (principal); E11.9 Type 2 diabetes mellitus without complications; I10 Essential (primary) hypertension
CPT/HCPCS: 52005; 74420; 82962; 87086; J0696; J0744; J2250; J2405; J2710; J3010; Q9967; J2370